=== PATIENT | female | born 1960 | race Caucasian/White ===

== ENCOUNTER 2020-07-29 14:14 | Outpatient (REF) | payer MEDICAID, SELFPAY ==
--- NOTE | 2020-07-29 | MR_ITS ---
EXAMINATION: MR BREAST WITHOUT AND WITH CONTRAST, BILATERAL CLINICAL INFORMATION: High-risk screening. Personal history of left breast palpable mass, mammogram and ultrasound of 2018 were normal. COMPARISON: Bilateral mammogram and targeted left breast ultrasound dated 05/23/2018 TECHNIQUE: Imaging was performed with a dedicated breast coil. Prior to the administration of contrast, bilateral axial T1 and bilateral axial T2 weighted sequences were obtained. After the uneventful administration of?7.5 mL of Gadavist, dynamic contrast-enhanced VIBRANT series through the breasts in the axial plane were performed. Subtracted images were performed and reviewed. A delayed sagittal sequence through both breasts was acquired. Additionally, CAD post-processing, including maximum intensity projections, 3-D reconstructions and kinetic analysis, were performed an independent workstation and reviewed by the interpreting radiologist is a portion of this exam. FINDINGS: The breast is composed of mostly fatty elements. There is no significant appreciable parenchymal enhancement. LEFT BREAST: No suspicious masslike or non-masslike enhancement. No abnormal skin thickening or nipple retraction. No abnormal architectural distortion. Review of the T2 weighted images demonstrates no fibrocystic changes or dilated ducts. Review of kinetic images reveals no additional findings. RIGHT BREAST: No suspicious masslike or non-masslike enhancement. No abnormal skin thickening or nipple retraction. No abnormal architectural distortion. Review of the T2 weighted images demonstrates no fibrocystic changes or dilated ducts. Review of kinetic images reveals no additional findings. There is no suspicious internal mammary chain or axillary adenopathy. Limited views of the chest and abdomen are unremarkable. MR/MR breast BI wo/w con IMPRESSION: No MR specific evidence of malignancy. ASSESSMENT: LEFT BREAST: BI-RADS 1-Negative RIGHT BREAST: BI-RADS 1-Negative RECOMMENDATIONS: Recommend routine bilateral mammographic screening. Repeat MRI as clinically indicated.
== END 2020-07-29 14:15 | disposition home or self-care (01) ==
LOC: HO.MRI 14:14
PROVIDERS: Visit Provider Nurse Practitioner
DX: Z12.31 Encounter for screening mammogram for malignant neoplasm of breast (principal)
CPT/HCPCS: 77049; A9585

== ENCOUNTER → 2021-12-31 11:45 | Outpatient (REF) | payer MEDICAID, SELFPAY ==
--- NOTE | 2021-12-31 11:51 | CA_ITS ---
Transthoracic Echocardiogram Patient (Last, First, Middle): Nora Crespo, Gender: Female Date of : 1960 Age: 61 Procedure Date: 12/31/2021 Procedure Type: Transthoracic Echocardiogram Location: [facility] Height: 162.56 cm Weight: 77.11 kg BSA: 1.83 m2 Heart Rate: bpm BP: 135 / 88 mmHg Freight Brakeman: TO Referring MD: Janet Serrano Symptoms: I10 HTN Z82.49 FAM HX ISCHEMIC HEART DISEASE Study Quality: Fair ECG Rhythm: Sinus Conclusions: - The left ventricular systolic function is normal. The visually estimated ejection fraction is between 65-70%. - There is mild septal asymmetric hypertrophy. - No obvious valvular pathology seen on this study. Findings Left Ventricle Normal left ventricular cavity size. The left ventricular systolic function is normal. The visually estimated ejection fraction is between 65-70%. There is no evidence of regional wall motion abnormalities. Diastolic function is normal for age. There is mild septal asymmetric hypertrophy. Right Ventricle Normal right ventricular cavity size and systolic function. Atria The left atrium is moderately dilated. The right atrium is normal in size. Aortic Valve There is a normal trileaflet aortic valve. There is no aortic valve stenosis. There is no aortic valve regurgitation. Mitral Valve The mitral valve appears normal. There is mild mitral valve regurgitation. There is no mitral valve stenosis. Pulmonic Valve The pulmonic valve is likely normal. Tricuspid Valve There is trace tricuspid valve regurgitation. The pulmonary artery systolic pressure is normal. Great Vessels The asc aorta and aortic arch are normal in size. Venous The inferior vena cava is normal in size and collapses greater than 50% with inspiration. Pericardium/Pleural There is no evidence of pericardial effusion. Prior Study Comparison No prior study available for comparison. Recommendations, Care & Conclusions No obvious valvular pathology seen on this study. Measurements 2D Linear Measurements IVSd: 1.18 0.6-0.9/0.6-1.0 cm LVIDd: 4.78 3.9-5.3/4.2-5.9 cm LVIDd Index: 2.61 2.4-3.2/2.2-3.1 cm/m2 LVIDs: 2.72 2.0-3.6 cm LVPWd: 0.70 0.7-1.1 cm LA Diam: 3.50 2.7-3.8/3.0-4.0 cm LAIDs Index: 1.91 1.5-2.3 cm/m2 LV Mass: 193.64 67-162/88-224 g LV Mass Index: 105.81 43-95/49-115 g/m2 LVOT Diam: 2.00 3.0+(-)1.3 cm 2D Systolic Function EF 4C: 55.70 >55% EF 2C: 64.00 >55% EF BiP: 58.70 >55% Mitral Valve MV Pk E: 0.87 MV PK A: 0.79 MV Decel Time: 244.00 E/A: 1.10 E'Lateral: 12.10 E'Medial: 7.94 E/E' Med: 11.00 E/E' Lat: 7.20 PHT: 72.00 MVA PHT: 3.06 Decel Isabela: 3.56 Aortic Valve AoV Pk Riley: 1.66 AoV Mn Riley: 1.13 AoV VTI: 0.36 AoV Pk Grad: 11.00 Aov Mn Grad: 6.00 JENI Cont.VTI: 2.86 LVOT LVOT Pk Riley: 1.29 LVOT Mn Riley: 0.93 LVOT VTI: 0.32 LVOT Pk Grad: 7.00 LVOT Mn Grad: 4.00 LVOT Diam: 2.00 LVOT Area: 3.14 Diastolic Function MV Pk E: 0.87 MV Pk A: 0.79 E/A: 1.10 E'Medial: 7.94 E/E' Med: 11.00 E' Laterial: 12.10 E/E' Lat: 7.20 Right Ventricle TAPSE (mm): 25.40 TVS' Riley: 8.80 Tricuspid Valve TR Pk Riley: 2.41 TR Pk Grad: 23.00 RA Press: 3.00 RVSP: 26.00 Great Vessels Aorta Sinus of Valsalva: 3.11 2.0-3.[address] Ridge: 2.48 1.7-3.4 cm Ao Asc: 3.70 2.1-3.4 cm Ao Arch: 3.20 Updated in Other Vendor System with Status of Final Nj Madison MD electronically signed on 01/02/2022 3:02:56 PM with status of Final
== END ==
LOC: HO.CARD 11:45
PROVIDERS: Visit Provider Nurse Practitioner
DX: I10 Essential (primary) hypertension (principal); Z82.49 Family history of ischemic heart disease and other diseases of the circulatory system
CPT/HCPCS: 93306